=== PATIENT | male | born 1975 | race Caucasian/White ===

== ENCOUNTER 2016-08-30 20:20 | Emergency (ER) | payer MEDICAID, OTHER ==
[2016-08-30] MEDS ORDERED: Ondansetron 4 MG/2 ML SDV IVPUSH ONE (20:37)
--- NOTE | 2016-08-30 20:38 | EDM.PDOC ---
ED HPI GENERAL MEDICAL PROBLEM - General Chief Complaint: Back Pain or Injury Stated Complaint: back pain Time Seen by Provider: 08/30/16 20:29 Source of Information: Reports: Patient, Family (), RN History Limitations: Reports: No Limitations - History of Present Illness INITIAL COMMENTS - FREE TEXT/NARRATIVE: He had one beer last night at 11:00 pm. Woke up about 7am today and felt nauseated. Vomited at 11:00 am today and vomited 3 times without any coffee grounds colored or bright red return. He vomited every 1-2 hours for a total of 4-5 times. He would try sips of water and would vomit. Diarrhea started about 11:00 am and he had watery diarrhea 3-4 times. He has had some generalized body aches and some abdominal pain. He started having some non-radiating low back pain today as well. No symptoms. No rash. No cough or viral URI symptoms. Onset: Today Onset Date: 08/30/16 Location: Reports: Abdomen, Back Severity: Mild Worsens with: Reports: None Associated Symptoms: Denies: Chest Pain, Cough, Headaches, Rash (None) Lower Back Pain Score (Numeric/FACES): 5 - Related Data Allergies Allergy/AdvReac Type Severity Reaction Status Date / Time Penicillins Allergy Cannot Verified 08/30/16 20:24 Remember Home Meds: Home Meds Calcium Carbonate [Tums] 1,000 mg PO ASDIRECTED PRN 08/30/16 [History] Ondansetron [Zofran ODT] 8 mg PO Q6H #10 tab.dis MDD 3 tablets 08/30/16 [Rx] ED ROS GENERAL - Review of Systems Review Of Systems: See Below Constitutional: Reports: Fever, Decreased Appetite. Denies: Night Sweats, Diaphoresis, Weight Loss, Weight Gain HEENT: Reports: No Symptoms Respiratory: Reports: No Symptoms Cardiovascular: Reports: No Symptoms Endocrine: Reports: No Symptoms GI/Abdominal: Reports: Abdominal Pain, Diarrhea, Nausea, Vomiting. Denies: Black Stool, Bloody Stool, Difficulty Swallowing, Hematemesis, Hematochezia : Reports: No Symptoms Musculoskeletal: Reports: Back Pain (diffuse low back pain without radiation. ) , Other (body aches) Neurological: Denies: Confusion, Dizziness, Headache, Tingling, Trouble Speaking , Difficulty Walking, Change in Speech Psychiatric: Reports: No Symptoms ED EXAM, GENERAL - Physical Exam Exam: See Below Exam Limited By: No Limitations General Appearance: Alert, WD/WN, No Apparent Distress Eye Exam: Bilateral Eye: Abnormal EOM, Normal Inspection Ears: Normal External Exam Throat/Mouth: Normal Voice, Other (moist, but suboptimal and he feels like his mouth is dry) Head: Atraumatic, Normocephalic. No: Facial Swelling, Sinus Tenderness Neck: Normal Inspection, Supple, Non-Tender, Full Range of Motion. No: Lymphadenopathy (L), Lymphadenopathy (R), Tender Lateral, Tender Midline Respiratory/Chest: No Respiratory Distress, Lungs Clear, Normal Breath Sounds, Chest Non-Tender Cardiovascular: Normal Peripheral Pulses, Regular Rate, Rhythm, No Edema Peripheral Pulses: 3+: Carotid (L), Carotid (R), Radial (L), Radial (R), Posterior Tibial (L), Posterior Tibial (R), Dorsalis Pedis (L), Dorsalis Pedis ( R) GI/Abdominal: Normal Bowel Sounds, Soft, No Organomegaly, Tender (Mild tenderness on deep palpation in the RLQ.). No: Distended, Guarding, Rigid (Male) Exam: Deferred Back Exam: Normal Inspection. No: CVA Tenderness (L), CVA Tenderness (R), Paraspinal Tenderness, Vertebral Tenderness Extremities: Normal Inspection, Non-Tender, No Pedal Edema. No: Leg Pain Neurological: Alert, Oriented, CN II-XII Intact, Normal Cognition, Normal Reflexes Psychiatric: Normal Affect, Normal Mood Skin Exam: Warm, Dry Course - Vital Signs Last Recorded V/S: Last Vital Signs Temp 100.2 F 08/30/16 20:55 Pulse 72 08/30/16 21:22 Resp 16 08/30/16 21:22 BP 121/70 08/30/16 21:22 Pulse Ox 99 08/30/16 20:40 - Orders/Labs/Meds Orders: Active Orders 24 hr Category Date Time Status CULTURE BLOOD [BC] Stat Lab 08/30/16 20:55 Received CULTURE BLOOD [BC] Stat Lab 08/30/16 20:55 Received Lactated Ringers [Ringers, Lactated] 1,000 ml Med 08/30/16 21:41 Active IV .BOLUS Sodium Chloride 0.9% [Normal Saline] 1,000 ml Med 08/30/16 20:45 Active IV ASDIRECTED Blood Culture x2 Reflex Set [OM.PC] Stat Oth 08/30/16 20:51 Ordered Medication Orders Sodium Chloride (Normal Saline) 1,000 mls @ 999 mls/hr IV ASDIRECTED JENNIFER Last Admin: 08/30/16 20:47 Dose: 999 mls/hr Lactated Ringer's (Ringers, Lactated) 1,000 mls @ 999 mls/hr IV .BOLUS ONE Stop: 08/30/16 22:41 Last Admin: 08/30/16 21:49 Dose: 999 mls/hr Labs: Laboratory Tests 08/30/16 08/30/16 08/30/16 Range/Units 20:40 20:40 20:40 WBC (4.0-10.2) K/uL RBC (4.33-5.41) M/uL Hgb (13.1-16.8) g/dL Hct (39.0-49.0) % MCV (84.0-98.0) fL MCH (28.2-33.3) pg MCHC (31.7-36.0) g/dL RDW (11.2-14.1) % Plt Count (150-350) K/uL Neut % (Auto) (45.0-80.0) % Lymph % (Auto) (10.0-50.0) % Burt % (Auto) (2.0-14.0) % Eos % (Auto) (0.0-5.0) % Baso % (Auto) (0.0-2.0) % Neut # (Auto) (1.40-7.00) K/uL Lymph # (Auto) (0.50-3.50) K/uL Burt # (Auto) (0.00-1.00) K/uL Eos # (Auto) (0.00-0.50) K/uL Baso # (Auto) (0.00-0.20) K/uL Sodium 136 (136-145) mmol/L Potassium 3.5 (3.5-5.1) mmol/L Chloride 101 (98-107) mmol/L Carbon Dioxide 24.7 (21.0-32.0) mmol/L BUN 21 H (7-18) mg/dL Creatinine 0.92 (0.51-1.17) mg/dL Est Cr Clr Drug Dosing 117.15 mL/min Estimated GFR (MDRD) > 60 mL/min Glucose 105 (74-106) mg/dL Lactic Acid 1.2 (0.4-2.0) mmol/L Calcium 9.0 (8.5-10.1) mg/dL Total Bilirubin 0.6 (0.2-1.0) mg/dL AST 22 (15-37) U/L ALT 24 (12-78) U/L Alkaline Phosphatase 66 (46-116) IU/L Total Protein 7.6 (6.4-8.2) g/dL Albumin 4.2 (3.4-5.0) g/dL Lipase 154 (73-393) U/L 08/30/16 Range/Units 20:55 WBC 12.7 H (4.0-10.2) K/uL RBC 5.50 H (4.33-5.41) M/uL Hgb 16.3 (13.1-16.8) g/dL Hct 45.6 (39.0-49.0) % MCV 82.9 L (84.0-98.0) fL MCH 29.6 (28.2-33.3) pg MCHC 35.7 (31.7-36.0) g/dL RDW 12.9 (11.2-14.1) % Plt Count 180 (150-350) K/uL Neut % (Auto) 83.5 H (45.0-80.0) % Lymph % (Auto) 11.8 (10.0-50.0) % Burt % (Auto) 4.6 (2.0-14.0) % Eos % (Auto) 0.0 (0.0-5.0) % Baso % (Auto) 0.1 (0.0-2.0) % Neut # (Auto) 10.64 H (1.40-7.00) K/uL Lymph # (Auto) 1.50 (0.50-3.50) K/uL Burt # (Auto) 0.59 (0.00-1.00) K/uL Eos # (Auto) 0.00 (0.00-0.50) K/uL Baso # (Auto) 0.01 (0.00-0.20) K/uL Sodium (136-145) mmol/L Potassium (3.5-5.1) mmol/L Chloride (98-107) mmol/L Carbon Dioxide (21.0-32.0) mmol/L BUN (7-18) mg/dL Creatinine (0.51-1.17) mg/dL Est Cr Clr Drug Dosing mL/min Estimated GFR (MDRD) mL/min Glucose (74-106) mg/dL Lactic Acid (0.4-2.0) mmol/L Calcium (8.5-10.1) mg/dL Total Bilirubin (0.2-1.0) mg/dL AST (15-37) U/L ALT (12-78) U/L Alkaline Phosphatase (46-116) IU/L Total Protein (6.4-8.2) g/dL Albumin (3.4-5.0) g/dL Lipase (73-393) U/L Meds: Medications Generic Name Dose Route Start Last Admin Trade Name Freq PRN Reason Stop Dose Admin Sodium Chloride 1,000 mls @ 999 mls/hr 08/30/16 20:45 08/30/16 20:47 Normal Saline IV 999 mls/hr ASDIRECTED JENNIFER Administration Lactated Ringer's 1,000 mls @ 999 mls/hr 08/30/16 21:41 08/30/16 21:49 Ringers, Lactated IV 08/30/16 22:41 999 mls/hr .BOLUS ONE Administration Discontinued Medications Generic Name Dose Route Start Last Admin Trade Name Freq PRN Reason Stop Dose Admin Ketorolac Tromethamine 30 mg 08/30/16 21:24 08/30/16 21:31 Toradol IVPUSH 08/30/16 21:25 30 mg ONETIME ONE Administration Ondansetron HCl 4 mg 08/30/16 20:37 08/30/16 20:48 Zofran IVPUSH 08/30/16 20:38 4 mg ONETIME ONE Administration Ondansetron HCl 4 mg 08/30/16 21:43 08/30/16 21:53 Zofran Odt PO 08/30/16 21:44 4 mg ONETIME ONE Administration - Radiology Interpretation Free Text/Narrative:: Feeling better after 4m IV Zofran and Normal [id number] cc. Less abdominal pain and less nausea. - Re-Assessments/Exams Free Text/Narrative Re-Assessment/Exam: 08/30/16 22:35 The Zofran 4 mg ODT helped alleviate the nausea and he is feeling better. Lactated Ringers has infused 700 ml and will finish the 2nd liter of crystalloid and then ready for discharge home. The low back pain is related to the vomiting, diarrhea and the viral illness/ viral gastroenteritis. Departure - Departure Time of Disposition: 22:49 Disposition: Home, Self-Care 01 Condition: good (follow up if not feeling better) Clinical Impression: Viral gastroenteritis, Intravascular volume depletion Low back strain Qualifiers: Encounter type: initial encounter Qualified Code(s): S39.012A - Strain of muscle, fascia and tendon of lower back, initial encounter - Discharge Information Prescriptions: Ondansetron [Zofran ODT] 8 mg PO Q6H #10 tab.dis MDD 3 tablets Instructions: Muscle Strain, [id number], Back Pain, Adult, [id number] Forms: ED Department Discharge Additional Instructions: Follow up if not feeling better. - My Orders Last 24 Hours: My Active Orders 08/30/16 20:45 Sodium Chloride 0.9% [Normal Saline] 1,000 ml IV ASDIRECTED 08/30/16 20:51 Blood Culture x2 Reflex Set [OM.PC] Stat 08/30/16 20:55 CULTURE BLOOD [BC] Stat CULTURE BLOOD [BC] Stat 08/30/16 21:41 Lactated Ringers [Ringers, Lactated] 1,000 ml IV .BOLUS - Assessment/Plan Last 24 Hours: My Active Orders 08/30/16 20:45 Sodium Chloride 0.9% [Normal Saline] 1,000 ml IV ASDIRECTED 08/30/16 20:51 Blood Culture x2 Reflex Set [OM.PC] Stat 08/30/16 20:55 CULTURE BLOOD [BC] Stat CULTURE BLOOD [BC] Stat 08/30/16 21:41 Lactated Ringers [Ringers, Lactated] 1,000 ml IV .BOLUS
[2016-08-30] MEDS ORDERED: Sodium Chloride 0.9% 1,000 ML IV SCH (20:45)
[2016-08-30 21:04] LABS: CHLORIDE,CL 101 mmol/L (98-107); SODIUM,NA 136 mmol/L (136-145)
[2016-08-30] MEDS ORDERED: Ketorolac 30 MG/ML SDV IVPUSH ONE (21:24)
[2016-08-30] MEDS ORDERED: Lactated Ringers 1,000 ML IV ONE (21:41)
[2016-08-30] MEDS ORDERED: Ondansetron 4 MG Tab.DIS PO ONE (21:43)
[2016-08-30 22:50] VITALS: BP 110/60
== END 2016-08-30 23:02 | disposition home or self-care (01) ==
LOC: LL.ED 20:20
DX: A08.4 Viral intestinal infection, unspecified (principal); S39.012A Strain of muscle, fascia and tendon of lower back, initial encounter; E86.1 Hypovolemia; Z88.0 Allergy status to penicillin; X58.XXXA Exposure to other specified factors, initial encounter
CPT/HCPCS: 36415; 80053; 83605; 83690; 85025; 87040; 96361; 96374; 96375; 99284; A9270; J1885; J2405; J7030; J7120

== ENCOUNTER 2016-09-01 12:43 | Emergency (ER) | payer MEDICAID ==
[2016-09-01 12:55] VITALS: BP 134/82
[2016-09-01 13:07] LABS: CHLORIDE,CL 102 mmol/L (98-107); SODIUM,NA 140 mmol/L (136-145)
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
[2016-09-01] MEDS ORDERED: Sodium Chloride 0.9% 10 ML Syringe FLUSH PRN (13:23)
[2016-09-01] MEDS ORDERED: Iopamidol 612 MG/ML 100 ML Bottle IVPUSH ONE (13:50)
[2016-09-01] MEDS ORDERED: sulfaSALAzine 500 MG Tab PO SCH (16:00)
[2016-09-01] MEDS ORDERED: predniSONE 20 MG Tab PO SCH (18:00)
== END 2016-09-01 15:20 | disposition home or self-care (01) ==
LOC: LL.ED 12:43
DX: K52.9 Noninfective gastroenteritis and colitis, unspecified (principal); Z88.0 Allergy status to penicillin; Z79.82 Long term (current) use of aspirin
CPT/HCPCS: 36000; 36415; 74177; 80048; 85025; 99284; Q9967

== ENCOUNTER 2016-09-03 10:21 | Day surgery (SDC) | payer MEDICAID ==
[2016-09-03] MEDS ORDERED: Propofol 200 MG/20 ML SDV ONE ×3 (10:50→11:35)
[2016-09-03] MEDS ORDERED: Sodium Chloride 0.9% 10 ML Syringe FLUSH PRN (10:58)
[2016-09-03] MEDS ORDERED: Lactated Ringers 1,000 ML IV SCH (11:00)
--- NOTE | 2016-09-03 11:33 | PCM.OPNOTE ---
- General Post-Op/Procedure Note Date of Surgery/Procedure: 09/03/16 Operative Procedure(s): Colonoscopy with multiple Bx's Findings: Mild diffuse colitis from cecum to rectum Pre Op Diagnosis: Colitis Post-Op Diagnosis: Same Anesthesia Technique: MAC Primary Surgeon: Tenzin Lockett Pathology: Colon Bx's EBL in mLs: 2 Complications: None Condition: Good
[2016-09-03 14:51] VITALS: BP 125/82
--- NOTE | 2016-09-04 07:54 | OR ---
Date of Procedure: 09/03/2016 PREOPERATIVE DIAGNOSIS: Colitis. POSTOPERATIVE DIAGNOSIS: Colitis. PROCEDURE: Colonoscopy with multiple biopsies. ANESTHESIA: IV sedation. PROCEDURE IN DETAIL: Patient was brought to the procedure room, where he was placed on his left side and IV sedation administered. Digital rectal exam was performed which was normal. Colonoscope was inserted and advanced to the level of the terminal ileum without difficulty. The appendiceal orifice and ileocecal valve were identified for landmarks. The terminal ileum was intubated and 2 biopsies taken. Terminal ileum appears normal. The entire colon from cecum to rectum has diffuse mild colitis without ulceration or active bleeding. I did take 2 biopsies from all segments of the colon as individual specimens. No polyps, diverticulosis, or other abnormalities were noted. This is most consistent with ulcerative colitis. Patient is already feeling better on prednisone and bleeding and diarrhea have improved. I will have him remain on current medication and follow up with Dr. Acosta next week for review of pathology report. BRONSON CHAPA MD /[id number]
== END 2016-09-03 12:45 | disposition home or self-care (01) ==
LOC: LL.SDS 10:21
PROVIDERS: ATTEND Surgery
DX: K52.9 Noninfective gastroenteritis and colitis, unspecified (principal)
CPT/HCPCS: 45380; J2704; J7120